=== PATIENT | male | born 1965 | race African-American/Black ===

== ENCOUNTER 2018-03-09 08:55 | Emergency (ER) | payer MEDICARE | END 2018-03-09 11:10 | disposition home or self-care (01) | LOC: ER 08:55 | DX: M27.2 Inflammatory conditions of jaws (principal); G89.29 Other chronic pain; M19.90 Unspecified osteoarthritis, unspecified site; F17.200 Nicotine dependence, unspecified, uncomplicated | CPT/HCPCS: 70486; 99284 ==